=== PATIENT | female | born 1970 | race Caucasian/White ===

== ENCOUNTER → 2017-07-18 | Outpatient (REF) | payer OTHER | LOC: M SFHCWAGY 11:26 | DX: Z12.4 Encounter for screening for malignant neoplasm of cervix (principal) ==

== ENCOUNTER → 2018-07-22 | Outpatient (REF) | payer OTHER | LOC: M SFHCWAGY 12:58 | PROVIDERS: ATTEND Nurse Practitioner Family | DX: Z01.419 Encounter for gynecological examination (general) (routine) without abnormal findings (principal) ==

== ENCOUNTER → 2021-02-04 | Outpatient (CLI) | payer OTHER ==
--- NOTE | 2021-02-04 17:34 | REPVR ---
PROCEDURE INFORMATION: Exam: CT Maxillofacial Without Contrast, Sinus Exam date and time: 02/04/2021 4:24 PM Age: 50 years old Clinical indication: Sinusitis; Chronic; Additional info: Chronic sinusitis TECHNIQUE: Imaging protocol: CT Maxillofacial without contrast. Focus on the sinuses. Radiation optimization: All CT scans at this facility use at least one of these dose optimization techniques: automated exposure control; mA and/or kV adjustment per patient size (includes targeted exams where dose is matched to clinical indication); or iterative reconstruction. COMPARISON: No relevant prior studies available. 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 Ethmoid air cells: Normal. No air-fluid levels. Sphenoid sinuses: Trace frothy secretions in the right sphenoid sinus. The left sphenoid sinus is clear. The bilateral sphenoid ostia are patent. Maxillary sinuses: Retention cyst or polyp in the left maxillary sinus. Trace bilateral maxillary sinus mucosal thickening. The ostiomeatal units are patent. Nasal cavity/Septum: No nasal cavity masses. Orting right deviation and spurring of the nasal septum which contacts the right middle and inferior turbinates. Orbital cavity: Orbits are normal. Globes are unremarkable. Bones/joints: Unremarkable. Soft tissues: Unremarkable. IMPRESSION: Trace, chronic maxillary sinusitis. Electronically signed by: Fariha Ornelas On 02/04/2021 17:33:48 PM
== END ==
LOC: M RAD 16:06
PROVIDERS: ATTEND Otolaryngology
DX: J32.9 Chronic sinusitis, unspecified (principal)

== ENCOUNTER → 2021-02-24 | Outpatient (REF) | payer OTHER | LOC: M SFHCWAGY 19:26 | PROVIDERS: ATTEND Nurse Practitioner Women's Health | DX: Z12.4 Encounter for screening for malignant neoplasm of cervix (principal) | CPT/HCPCS: 87624; G0123 ==

== ENCOUNTER → 2021-03-23 | Outpatient (CLI) | payer OTHER ==
[~2021-03-23] MED LIST: DEBL1TAB PO; ESTR1CAP2 PO; MV-M1TAB40 PO
== END ==
LOC: M LABSMTC 11:17
PROVIDERS: ATTEND Anesthesiology
DX: Z01.812 Encounter for preprocedural laboratory examination (principal); Z11.52 Encounter for screening for COVID-19

== ENCOUNTER 2021-03-28 10:52 | Day surgery (SDC) | payer OTHER ==
[~2021-03-28] VITALS: Ht 162.6 cm; Wt 66.1 kg
[~2021-03-28 10:52] MED LIST changes: +LR 1,000 ML IV ONE
[2021-03-28] MEDS ORDERED: CENT1TAB PO (11:03)
[2021-03-28] MEDS ORDERED: fentaNYL 100 MCG/2 ML INJECTION As Ordered ONE ×2 (12:08→12:39)
[2021-03-28] MEDS ORDERED: ROCURONIUM BROMIDE 50 MG/5 ML VIAL As Ordered ONE (12:08)
[2021-03-28] MEDS ORDERED: MIDAZOLAM INJ 2MG/2ML VIAL (J2250 PER 1MG) As Ordered ONE (12:08)
[2021-03-28] MEDS ORDERED: LIDOCAINE 2% 100MG/5ML SDV (FOR ANES.) As Ordered ONE (12:08)
[2021-03-28] MEDS ORDERED: propofoL 200 MG/20 ML VIAL As Ordered ONE (12:08)
[2021-03-28] MEDS ORDERED: COCAINE 4% 4ML NASAL SOLUTION BTL As Ordered ONE (12:13)
[2021-03-28] MEDS ORDERED: OXYMETAZOLINE 0.05% NASAL SPRAY (AFRIN) As Ordered ONE (12:13)
[2021-03-28] MEDS ORDERED: dexameTHASONE 4 MG/ML 1ML VIAL (J1100 PER 1MG) As Ordered ONE (12:39)
[2021-03-28] MEDS ORDERED: ONDANSETRON 4MG/2ML VIAL As Ordered ONE (12:39)
[2021-03-28] MEDS: LIDOCAINE W/EPINEPHRINE 1% 20ML VIAL As Ordered ONE (12:44)
[2021-03-28] MEDS ORDERED: SUGAMMADEX SODIUM 500 MG/5 ML VIAL (BRIDION) As Ordered ONE ×2 (12:49→12:50)
[2021-03-28] MEDS ORDERED: ACETAMINOPHEN 1000MG 100ML IV BTL (OFIRMEV) (J0131 PER 10MG) As Ordered ONE (12:49)
[2021-03-28] MEDS ORDERED: ONDANSETRON 4MG/2ML VIAL IV PRN ×2 (13:55→14:00)
[2021-03-28] MEDS ORDERED: LR 1,000 ML IV SCH ×2 (13:55)
[2021-03-28] MEDS ORDERED: oxyCODONE 5MG TAB PO PRN (13:55)
[2021-03-28] MEDS ORDERED: fentaNYL 100 MCG/2 ML INJECTION IV PRN (13:55)
[2021-03-28] MEDS ORDERED: ANEXSIA, NORCO 7.5MG/325MG TABLET(HYDROCODONE/APAP) PO PRN (14:00)
[2021-03-28] MEDS ORDERED: MORPHINE 10 MG/ML 1ML VIAL (J2270) IV PRN (14:00)
[2021-03-28] MEDS ORDERED: LABETALOL 100MG/20ML VIAL As Ordered ONE (14:52)
[2021-03-28] MEDS: LABETALOL 100MG/20ML VIAL IV PRN ×2 (14:56→15:11)
[2021-03-28 15:11] VITALS: BP 176/110
[2021-03-28 16:25] VITALS: BP 138/82
== END 2021-03-28 16:45 | disposition home or self-care (01) ==
LOC: M SDC 10:52
PROVIDERS: ATTEND Otolaryngology
DX: J34.2 Deviated nasal septum (principal); J34.3 Hypertrophy of nasal turbinates; J45.909 Unspecified asthma, uncomplicated; Z79.899 Other long term (current) drug therapy
CPT/HCPCS: 30140; 30520; C9046; J0131; J1100; J2250; J2405; J3010

== ENCOUNTER → 2022-10-23 | Outpatient (REF) | payer OTHER ==
[~2022-10-23] MED LIST changes: +CENT1TAB PO; -LR 1,000 ML IV ONE
== END ==
LOC: M SFHCWAGY 15:01
PROVIDERS: ATTEND Nurse Practitioner Family
DX: Z12.4 Encounter for screening for malignant neoplasm of cervix (principal); Z01.419 Encounter for gynecological examination (general) (routine) without abnormal findings; Z77.9 Other contact with and (suspected) exposures hazardous to health

== ENCOUNTER → 2024-01-09 | Outpatient (REF) | payer OTHER ==
[2024-01-12 13:46] LABS: HPV APTIMA Not Detected (Not Detected)
== END ==
LOC: M SFHCWAGY 14:59
PROVIDERS: ATTEND Nurse Practitioner Family
DX: Z12.4 Encounter for screening for malignant neoplasm of cervix (principal)
CPT/HCPCS: 87624; G0123

== ENCOUNTER → 2025-02-26 | Outpatient (REF) | payer OTHER ==
[2025-03-06 15:51] LABS: HPV APTIMA Not Detected (Not Detected)
== END ==
LOC: M SFHCWAGY 17:34
PROVIDERS: ATTEND Advanced Practice Midwife
DX: Z12.4 Encounter for screening for malignant neoplasm of cervix (principal)
CPT/HCPCS: 87624; G0123